=== PATIENT | male | born 1990 | race Caucasian/White ===

== ENCOUNTER 2022-04-05 11:20 | Emergency (ER) | payer BC ==
[~2022-04-05] VITALS: Ht 180.3 cm; Wt 77.1 kg
[2022-04-05] MEDS ORDERED: SULF1TAB48 PO (11:57)
[2022-04-05] MEDS ORDERED: CEPH500C2 PO (11:57)
[2022-04-05 11:58] VITALS: BP 143/75
[2022-04-05] MEDS ORDERED: CEPHALEXIN MONOHYDRATE 500 MG CAPSULE PO ONE ×2 (12:00→12:32)
[2022-04-05] MEDS ORDERED: SULFAMETH/TRIMETH 800/160 MG 1 UDTAB TABLET PO ONE (12:00)
[2022-04-05] MEDS ORDERED: SULFAMETH/TRIMETH 800/160 MG 1 UDTAB TABLET ONE (12:32)
== END 2022-04-05 12:43 | disposition home or self-care (01) ==
LOC: ER 11:26
DX: S90.821A Blister (nonthermal), right foot, initial encounter (principal); L03.115 Cellulitis of right lower limb; Z79.899 Other long term (current) drug therapy; X58.XXXA Exposure to other specified factors, initial encounter; Y93.9 Activity, unspecified; Y92.89 Other specified places as the place of occurrence of the external cause; Y99.8 Other external cause status